=== PATIENT | female | born 2000 | race African-American/Black ===

== ENCOUNTER 2023-12-03 00:22 | Emergency (ER) | payer OTHER ==
[2023-12-03 00:33] VITALS: BP 114/70; PULSE 77; RESP 18; TEMP 98.1; BMI 20.3
[2023-12-03] MEDS ORDERED: IBUPROFEN 600 MG TABLET (FP) PO ONE (01:13)
[2023-12-03] MEDS ORDERED: ACETAMINOPHEN 325 MG TABLET (FP) PO ONE (01:14)
== END 2023-12-03 02:24 | disposition home or self-care (01) ==
LOC: JER 00:22
DX: M53.3 Sacrococcygeal disorders, not elsewhere classified (principal)
CPT/HCPCS: 72100-TC-FY; 99283-25